=== PATIENT | female | born 1985 | race Caucasian/White ===

== ENCOUNTER → 2016-12-09 | Outpatient (CLI) | payer OTHER ==
--- NOTE | 2016-12-09 12:32 | NUR ---
Eval 2 Hr/Client was refered here fro an eval as a referral from her atty as she is in a custody shaw with her sons dad.
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
== END | disposition home or self-care (01) ==
LOC: ADTC.GI 08:39
DX: F10.10 Alcohol abuse, uncomplicated (principal); Z72.0 Tobacco use; Z62.810 Personal history of physical and sexual abuse in childhood